=== PATIENT | female | born 1955 ===

== ENCOUNTER 2019-08-02 14:20 | Emergency (ER) | payer BC, OTHER ==
[2019-08-02] MEDS ORDERED: Ondansetron 4 MG Tab.DIS PO ONE (14:21)
[2019-08-02] MEDS ORDERED: Ondansetron 4 MG/2 ML SDV IVPUSH STA (14:45)
--- NOTE | 2019-08-02 14:45 | EDM.PDOC ---
ED HPI GENERAL MEDICAL PROBLEM - General Stated Complaint: I THINK I AM HAVING A STROKE Time Seen by Provider: 08/02/19 14:39 Source of Information: Reports: Patient, Family () History Limitations: Reports: No Limitations - History of Present Illness INITIAL COMMENTS - FREE TEXT/NARRATIVE: This patient is a a 64 year old female that presents to the ER. Patient reports that she woke this morning with a headache global and feeling generally bad. She reports that she just doesnt feel good. She reports that that she feels nauseated and has vomited several times. She reports that she feels generally weak and feels like a "wet rag". The patient reports that in December she had a stroke and had similar symptoms of headache and vomiting. The patient reports that she is from [place] and is here visiting a relative in [place] [facility]. The patient denies unilateral weaknesses, difficulty with thoughts, difficulty with speech. She is alert and oriented. Onset: Today Onset Date: 08/02/19 Onset Time: 08:00 Duration: Hour(s): (6 10/02) Location: Reports: Head Severity: Moderate Improves with: Reports: None Worsens with: Reports: None Associated Symptoms: Reports: Headaches, Malaise, Nausea/Vomiting, Weakness ( generalized). Denies: Confusion, Chest Pain, Cough, cough w sputum, Diaphoresis , Fever/Chills, Loss of Appetite, Rash, Seizure, Shortness of Breath, Syncope Headache Pain Score (Numeric/FACES): 10 - Related Data Allergies Allergy/AdvReac Type Severity Reaction Status Date / Time LUCINDA Inhibitors Allergy Cough Verified 08/02/19 14:51 levofloxacin [From Levaquin] Allergy Cough Verified 08/02/19 14:51 metformin [From Glucophage] Allergy Diarrhea Verified 08/02/19 14:51 Home Meds: Home Meds Edoxaban Tosylate [Savaysa] 30 mg PO DAILY 08/02/19 [History] Gabapentin [Neurontin] 200 mg PO BIDAC 08/02/19 [History] Gabapentin [Neurontin] 500 mg PO BEDTIME 08/02/19 [History] Insulin Glarg,Human.Rec.Analog [Lantus] 45 unit SUBCUT BEDTIME 08/02/19 [History ] Insulin Lispro [HumaLOG] 100 unit SQ ASDIRECTED 08/02/19 [History] Levothyroxine 25 mcg PO ACBREAKFAST 08/02/19 [History] Metoprolol Succinate [Toprol XL] 25 mg PO BID 08/02/19 [History] Nitroglycerin [Nitrostat] 0.4 mg SL ASDIRECTED PRN 08/02/19 [History] oxyCODONE 5 - 10 mg PO ASDIRECTED PRN 08/02/19 [History] ED ROS GENERAL - Review of Systems Review Of Systems: See Below Constitutional: Reports: Malaise, Weakness, Fatigue HEENT: Reports: No Symptoms Respiratory: Reports: No Symptoms. Denies: Shortness of Breath, Wheezing, Cough , Sputum Cardiovascular: Reports: No Symptoms. Denies: Chest Pain, Dyspnea on Exertion, Edema, Palpitations, Syncope Endocrine: Reports: No Symptoms GI/Abdominal: Reports: Nausea, Vomiting. Denies: Abdominal Pain, Diarrhea, Hematemesis : Reports: No Symptoms. Denies: Dysuria, Flank Pain, Frequency, Hematuria, Incontinence, Pain, Urgency, Urinary Retention Musculoskeletal: Reports: No Symptoms Skin: Reports: No Symptoms Neurological: Reports: Headache. Denies: Confusion, Dizziness, Numbness, Pre- Existing Deficit, Seizure, Syncope, Tingling, Tremors, Trouble Speaking, Difficulty Walking, Weakness (no unilateral weaknesses), Change in Speech, Gait Disturbance Psychiatric: Reports: No Symptoms Hematologic/Lymphatic: Reports: No Symptoms Immunologic: Reports: No Symptoms ED EXAM, GENERAL - Physical Exam Exam: See Below Exam Limited By: No Limitations General Appearance: Alert, WD/WN, No Apparent Distress, Obese, Other (Vomiting) Eye Exam: Bilateral Eye: EOMI, Normal Inspection, PERRL Ears: Normal External Exam, Normal Canal, Hearing Grossly Normal, Normal TMs Ear Exam: Bilateral Ear: Auricle Normal, Canal Normal, TM normal Nose: Normal Inspection, Normal Mucosa, No Blood Throat/Mouth: Normal Inspection, Normal Lips, Normal Teeth, Normal Gums, Normal Oropharynx, Normal Voice, No Airway Compromise Head: Atraumatic, Normocephalic Neck: Normal Inspection, Supple, Non-Tender, Full Range of Motion Respiratory/Chest: No Respiratory Distress, Lungs Clear, Normal Breath Sounds, No Accessory Muscle Use, Chest Non-Tender Cardiovascular: Normal Peripheral Pulses, Regular Rate, Rhythm, No Edema, No Gallop, No JVD, No Murmur, No Rub Peripheral Pulses: 2+: Radial (L), Radial (R), Posterior Tibial (L), Posterior Tibial (R), Dorsalis Pedis (L), Dorsalis Pedis (R) GI/Abdominal: Normal Bowel Sounds, Soft, Non-Tender, No Organomegaly, No Distention, No Abnormal Bruit, No Mass, Pelvis Stable Back Exam: Normal Inspection, Full Range of Motion, Decreased Range of Motion, Muscle Spasm, Paraspinal Tenderness, Vertebral Tenderness. No: CVA Tenderness ( L), CVA Tenderness (R) Extremities: Normal Inspection, Normal Range of Motion, Non-Tender, No Pedal Edema, Normal Capillary Refill Neurological: Alert, Oriented, CN II-XII Intact, Normal Cognition, Normal Gait, No Motor/Sensory Deficits Psychiatric: Anxious Skin Exam: Warm, Dry, Intact, Normal Color, No Rash Lymphatic: No Adenopathy Course - Orders/Labs/Meds Orders: Active Orders 24 hr Category Date Time Status Head wo Cont [CT] Stat Exams 08/02/19 14:39 Taken CULTURE BLOOD [BC] Stat Lab 08/02/19 14:40 Received CULTURE BLOOD [BC] Stat Lab 08/02/19 14:50 Received UA RFX PREM AND CULT IF INDIC [URIN] Stat Lab 08/02/19 14:40 Ordered Sodium Chloride 0.9% [Normal Saline] 500 ml Med 08/02/19 15:45 Active IV .BOLUS Blood Culture x2 Reflex Set [OM.PC] Stat Oth 08/02/19 14:40 Ordered Medication Orders Sodium Chloride (Normal Saline) 500 mls @ 1,000 mls/hr IV .BOLUS PAUL Last Admin: 08/02/19 15:48 Dose: 1,000 mls/hr Labs: Laboratory Tests 08/02/19 08/02/19 08/02/19 Range/Units 14:40 14:40 14:40 WBC 6.7 (5.0-10.0) 10^3/uL RBC 4.80 (4.00-5.50) 10^6/uL Hgb 13.5 (12.0-16.0) g/dL Hct 40.7 (37.0-47.0) % MCV 84.8 (82.0-94.0) fL MCH 28.1 (27.0-32.0) pg MCHC 33.2 (33.0-38.0) g/dL RDW Coeff of Heri 15.4 H (11.0-15.0) % Plt Count 228 (150-400) 10^3/uL Neut % (Auto) 66.7 (35-85) % Lymph % (Auto) 27.4 (10-55) % [place] % (Auto) 4.6 (0-16) % Eos % (Auto) 1.2 (0-5) % Baso % (Auto) 0.1 (0-3) % Neut # (Auto) 4.44 (1.80-7.00) 10^3/uL Lymph # (Auto) 1.83 (1.00-4.80) 10^3/uL [place] # (Auto) 0.31 (0.00-0.80) 10^3/uL Eos # (Auto) 0.08 (0.00-0.45) 10^3/uL Baso # (Auto) 0.01 10^3/uL Sodium 142 (136-145) mEq/L Potassium 4.2 (3.5-5.0) mEq/L Chloride 103 (98-106) mEq/L Carbon Dioxide 31 (21-32) mmol/L BUN 16 (7-18) mg/dL Creatinine 0.8 (0.6-1.0) mg/dL Est Cr Clr Drug Dosing 51.03 mL/min Estimated GFR (MDRD) > 60 (>=60) mL/min Glucose 146 H (75-99) mg/dL Lactic Acid 1.0 (0.4-2.0) mmol/L Calcium 9.4 (8.4-10.1) mg/dL Total Bilirubin 1.4 H (0.0-1.0) mg/dL AST 15 (15-37) U/L ALT 13 (12-78) U/L Alkaline Phosphatase 98 (46-116) U/L Creatine Kinase 181 (21-215) U/L Troponin I < 0.017 (0.00-0.06) ng/mL C-Reactive Protein 0.5 (0.2-0.8) mg/dL NT-Pro-B Natriuret Pep 155 (0-1000) pg/mL Total Protein 7.3 (6.4-8.2) g/dL Albumin 3.4 (3.4-5.0) g/dL Amylase 47 (25-115) U/L Lipase 107 (73-393) U/L Meds: Medications Generic Name Dose Route Start Last Admin Trade Name Denisq PRN Reason Stop Dose Admin Sodium Chloride 500 mls @ 1,000 mls/hr 08/02/19 15:45 08/02/19 15:48 Normal Saline IV 1,000 mls/hr .BOLUS PAUL Administration Discontinued Medications Generic Name Dose Route Start Last Admin Trade Name Denisq PRN Reason Stop Dose Admin Diphenhydramine HCl 12.5 mg 08/02/19 16:46 08/02/19 16:59 Benadryl IVPUSH 08/02/19 16:47 12.5 mg ONETIME ONE Administration Promethazine HCl 12.5 mg/ 50.5 mls @ 100 mls/hr 08/02/19 16:19 08/02/19 16:58 Sodium Chloride IV 08/02/19 16:49 100 mls/hr NOW STA Administration Promethazine HCl 12.5 mg/ 50.5 mls @ 100 mls/hr 08/02/19 16:46 Sodium Chloride IV 08/02/19 17:16 NOW STA Ketorolac Tromethamine 30 mg 08/02/19 16:46 08/02/19 16:59 Toradol IVPUSH 08/02/19 16:47 30 mg ONETIME ONE Administration Morphine Sulfate 4 mg 08/02/19 15:39 08/02/19 15:58 Morphine IVPUSH 08/02/19 15:40 4 mg ONETIME ONE Administration Ondansetron HCl 4 mg 08/02/19 14:45 08/02/19 14:53 Zofran IVPUSH 08/02/19 14:46 4 mg NOW STA Administration Ondansetron HCl 4 mg 08/02/19 15:36 08/02/19 15:47 Zofran IV 08/02/19 15:37 4 mg NOW STA Administration - Radiology Interpretation Free Text/Narrative:: Head CT; Discussed with radiologist: No acute findings. CT Results Date: 08/02/19 CT Results Time: 15:30 - Re-Assessments/Exams Free Text/Narrative Re-Assessment/Exam: 08/02/19 16:50 still awaiting patient to give Urine. Labs unremarkable. CT no bleed or acute findings. Patient reports headache is improving Now a 8/10, was a 10/10. Patient vomiting is improving, but still a little nauseated. Will give more medications and asked patient for a urine sample. 08/02/19 17:21 Patient reports after the medications her headache is now a 6/10 and feeling much better. Patient was unable to give a urine. She is complains of no dysuria or urinary complaints, will discharge. Educated to return for unilateral weaknesses, headache gets worse again, vomiting, or any other concerns. Patient does report she does get migraines since after her stroke and this does feel like that. Departure - Departure Time of Disposition: 17:22 Disposition: Home, Self-Care 01 Condition: Fair Clinical Impression: Headache Qualifiers: Headache type: unspecified Headache chronicity pattern: acute headache Intractability: not intractable Qualified Code(s): R51 - Headache Vomiting Qualifiers: Vomiting type: unspecified Vomiting Intractability: non-intractable Nausea presence: with nausea Qualified Code(s): R11.2 - Nausea with vomiting, unspecified - Discharge Information *PRESCRIPTION DRUG MONITORING PROGRAM REVIEWED*: Not Applicable *COPY OF PRESCRIPTION DRUG MONITORING REPORT IN PATIENT ANN-MARIE: Not Applicable Instructions: Nausea and Vomiting, Adult, [id number], General Headache Without Cause, [id number], Migraine Headache, [id number] Referrals: PCP,None [Primary Care Provider] - Forms: ED Department Discharge Additional Instructions: Followup with your primary care provider Return to the ER for worsening of condition or any emergent concerns Increase fluids Zofran 4mg under the tongue every 4 hours as needed for nausea or vomiting #4 take home Go home and rest in a dark, cool, quiet room - My Orders Last 24 Hours: My Active Orders 08/02/19 14:39 Head wo Cont [CT] Stat 08/02/19 14:40 CULTURE BLOOD [BC] Stat UA RFX PREM AND CULT IF INDIC [URIN] Stat Blood Culture x2 Reflex Set [OM.PC] Stat 08/02/19 14:50 CULTURE BLOOD [BC] Stat 08/02/19 15:45 Sodium Chloride 0.9% [Normal Saline] 500 ml IV .BOLUS - Assessment/Plan Last 24 Hours: My Active Orders 08/02/19 14:39 Head wo Cont [CT] Stat 08/02/19 14:40 CULTURE BLOOD [BC] Stat UA RFX PREM AND CULT IF INDIC [URIN] Stat Blood Culture x2 Reflex Set [OM.PC] Stat 08/02/19 14:50 CULTURE BLOOD [BC] Stat 08/02/19 15:45 Sodium Chloride 0.9% [Normal Saline] 500 ml IV .BOLUS Plan: PLEASE SEE RN NOTE FOR PFSH
[2019-08-02 15:09] LABS: CHLORIDE,CL 103 mEq/L (98-106); SODIUM,NA 142 mEq/L (136-145)
[2019-08-02] MEDS ORDERED: Ondansetron 4 MG/2 ML SDV IV STA (15:36)
[2019-08-02] MEDS ORDERED: Sodium Chloride 0.9% 500 ML IV SCH (15:45)
[2019-08-02] MEDS ORDERED: Promethazine 12.5 MG in Sodium Chloride 0.9% 50 ML IV STA ×2 (16:19→16:46)
[2019-08-02] MEDS ORDERED: Ketorolac 30 MG/ML SDV IVPUSH ONE (16:46)
[2019-08-02] MEDS ORDERED: diphenhydrAMINE 50 MG/ML SDV IVPUSH ONE (16:46)
[2019-08-02] MEDS ORDERED: Take Home: Ondansetron 4 MG Tab.DIS, 2 Tab Pack PO ONE (17:25)
== END 2019-08-02 18:10 | disposition home or self-care (01) ==
LOC: CC.ED 14:20
DX: R51 Headache (principal); R11.2 Nausea with vomiting, unspecified; E66.9 Obesity, unspecified; Z68.41 Body mass index [BMI] 40.0-44.9, adult; Z88.8 Allergy status to other drugs, medicaments and biological substances; Z88.1 Allergy status to other antibiotic agents; Z86.73 Personal history of transient ischemic attack (TIA), and cerebral infarction without residual deficits
CPT/HCPCS: 36415; 70450; 80053; 82150; 82550; 83605; 83690; 83880; 84484; 85025; 86140; 87040; 87804; 96361; 96365; 96375; 96376; 99284; A9270; J1200; J1885; J2270; J2405; J2550; J7040; J7050